=== PATIENT | female | born 1945 | race African-American/Black ===

== ENCOUNTER 2018-06-11 17:06 | Emergency (ER) | payer OTHER ==
[~2018-06-11] VITALS: Ht 167.6 cm; Wt 99.8 kg
[2018-06-11] MEDS ORDERED: TRAMADOL 50 MG50 MG PO (17:42)
[2018-06-11 19:04] VITALS: BP 136/88
== END 2018-06-11 20:18 ==
LOC: ER 17:06
DX: M79.605 Pain in left leg (principal); R60.0 Localized edema; I10 Essential (primary) hypertension; Z86.73 Personal history of transient ischemic attack (TIA), and cerebral infarction without residual deficits; Z86.718 Personal history of other venous thrombosis and embolism

== ENCOUNTER 2018-07-24 10:56 | Emergency (ER) | payer OTHER ==
[~2018-07-24] VITALS: Ht 167.6 cm; Wt 77.1 kg
[~2018-07-24 10:56] MED LIST: TRAMADOL 50 MG50 MG PO
[2018-07-24 11:19] LABS: URINE BILIRUBIN NEGATIVE (Negative); URINE BLOOD NEGATIVE (Negative); URINE CLARITY CLEAR; URINE COLOR YELLOW; URINE GLUCOSE-RANDOM* NEGATIVE (Negative); URINE KETONES NEGATIVE (Negative); URINE LEUKOCYTES NEGATIVE (Negative); URINE NITRITE NEGATIVE (Negative); URINE PROTEIN (DIPSTICK) NEGATIVE (Negative); URINE SPECIFIC GRAVITY 1.015 (1.005-1.035); URINE UROBILINOGEN 0.2 E.U./dl (0.2-1.0)
[2018-07-24 11:33] LABS: HEMATOCRIT 33.1 % (37.0-47.0); HEMOGLOBIN 10.7 gm/dL (12.0-15.0); MCH 30.9 pg (26.0-34.0); MCHC 32.4 g/dL (28.0-37.0); MCV 95.2 fL (80.0-100.0); PLATELET COUNT 293 thou/uL (150-400); RBC 3.47 mil/uL (4.20-5.00); RDW 15.6 % (10.5-14.5); WBC 5.7 thou/uL (4.0-11.0)
[2018-07-24 12:07] LABS: ABSOLUTE NEUTROPHILS 3.4 thou/uL (1.4-8.2); ANISOCYTOSIS 2+; MYELOCYTES 2 %
[2018-07-24 12:32] LABS: CALCIUM 9.5 mg/dL (8.5-10.1); CREATININE 1.5 mg/dL (0.6-1.0); POTASSIUM 4.3 mmol/L (3.5-5.1)
[2018-07-24 12:38] LABS: ALBUMIN 2.5 g/dL (3.4-5.0); DIRECT BILIRUBIN 0.1 mg/dL (<0.1-0.3); TOTAL BILIRUBIN 0.5 mg/dL (<0.1-1.0)
[2018-07-24 15:38] VITALS: BP 142/63
== END 2018-07-24 18:05 ==
LOC: ER 10:56
PROVIDERS: Physician Assistant
DX: R10.32 Left lower quadrant pain (principal); I10 Essential (primary) hypertension; Z86.73 Personal history of transient ischemic attack (TIA), and cerebral infarction without residual deficits